=== PATIENT | male | born 2005 | race Hispanic/Latino ===

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

== ENCOUNTER 2024-05-24 19:33 | Emergency (ER) | payer OTHER, SELFPAY ==
[2024-05-24] MEDS ORDERED: Boostrix 0.5 ML (Tdap) VIAL (>/=7 yrs of age) ONE (22:26)
== END 2024-05-24 22:40 | disposition home or self-care (01) ==
LOC: ERS 19:33
DX: S01.112A Laceration without foreign body of left eyelid and periocular area, initial encounter (principal); W21.05XA Struck by basketball, initial encounter; Y93.67 Activity, basketball; Z23 Encounter for immunization
CPT/HCPCS: 12011; 70450; 70486; 90471; 90715

== ENCOUNTER 2025-08-15 22:26 | Emergency (ER) | payer SELFPAY | END 2025-08-16 02:17 | disposition home or self-care (01) | LOC: ERS 22:26 | DX: M79.644 Pain in right finger(s) (principal); W23.0XXA Caught, crushed, jammed, or pinched between moving objects, initial encounter; Y93.67 Activity, basketball | CPT/HCPCS: 99283 ==